=== PATIENT | male | born 1985 | race Caucasian/White ===

== ENCOUNTER 2019-06-18 11:16 | Inpatient (IN) ==
[2019-06-18 12:05] LABS: Appearance Urine Clear (Clear); Bacteria Urine Automated Negative (Negative); Bilirubin Urine Negative (Negative); Blood Urine Negative (Negative); Color Urine Yellow; Glucose Urine UA Negative (Negative); Ketones Urine Negative (Negative); Leukocyte Esterase Urine 1+ (Negative); Nitrite Urine Negative (Negative); Protein Urine Negative (Negative); RBC Urine Automated 0-4 /hpf (0-4); Specific Gravity Urine 1.018 (1.000-1.030); Urobilinogen Urine Negative (Negative); pH Urine 5.5 (4.5-7.5)
[2019-06-18 12:26] LABS: Amphetamines+Metham, Urine Neg (Neg); Barbiturates, Urine Neg (Neg); Benzodiazepine, Urine Neg (Neg); Cocaine, Urine Neg (Neg); MDMA (Ecstacy), Urine Pos (Neg); Methadone, Urine Neg (Neg); Opiate, Urine Neg (Neg); Phencyclidine, Urine Neg (Neg)
[2019-06-18 12:35] LABS: Basophils # (auto) 0.07 K/uL (0-0.2); Basophils % (auto) 1.1 %; Hematocrit (blood only) 47.8 % (42-52); Immature Granulocytes # (auto) 0.02 K/uL (0.00-0.02); Immature Granulocytes % (auto) 0.3 %; Lymphocytes # (auto) 2.33 K/uL (1.2-3.4); Lymphocytes % (auto) 35.5 %; Mean Corpuscular Hemoglobin 27.9 pg (25-34); Mean Corpuscular Hgb Conc 35.6 g/dL (32-36); Mean Corpuscular Volume 78.5 fL (80-100); Mean Platelet Volume 9.9 fL (7.4-10.4); Monocytes # (auto) 0.47 K/uL (0.11-0.59); Monocytes % (auto) 7.2 %; Neutrophils # (auto) 3.68 K/uL (1.4-6.5); Neutrophils % (auto) 55.9 %; Platelet Count 270 K/uL (130-400); RDW Standard Deviation 39.6 fL (36.4-46.3); Red Blood Count 6.09 M/uL (4.7-6.1); White Blood Count 6.57 K/uL (4.8-10.8)
[2019-06-18 13:06] LABS: Acetaminophen < 2 ug/ml (10-30); Salicylate < 1.7 mg/dl (2.8-20)
[2019-06-18 13:10] LABS: Albumin Level 4.2 gm/dl (3.4-5.0); BUN Creatinine Ratio 15.3 (10-20); Calcium 9.2 mg/dl (8.5-10.1); Creatinine Clr Calc Pharmacy 143.9 ml/min; Est GFR (Non-African American) 111.3; Potassium 4.4 mmol/L (3.5-5.1)
[2019-06-18 13:21] LABS: Albumin Globulin Ratio 1.3 (0.9-2); Bilirubin,Total 0.5 mg/dl (0.2-1); Globulin 3.3 gm/dl (2.5-4.0); Thyroid Stimulating Hormone 0.664 uIu/ml (0.300-4.500); Total Protein 7.5 gm/dl (6.4-8.2)
--- NOTE | 2019-06-18 14:07 | Emergency Department Note ---
Entered by Viry Garland acting as a scribe for History of Present Illness General Chief complaint: Mental Health Evaluation Stated complaint: MENTAL HEALTH EVAL-201 Source: patient History of Present Illness Onset (ago): week(s) (a few weeks ago) Location: head Pain Consistency: + other (worsening) Maximum Pain Intensity: 0 Quality: + other (mental health) Associated symptoms: + denies other symptoms (hallucinations, ever hurting himself in the past) and + other (SI with plan to overdose, feeling helpless, difficulty sleeping); no loss of appetite The patient is a 34 year old male who presents to the Emergency Room for a mental health evaluation. The patients father states that the patient has been living in [place] for 4 years with his girlfriend. He states that last fall their relationship ended after 6 years and he started to have some difficulties with his bipolar. He reports that he ended up going inpatient in August of last year for a little and having his medications changed. He reports that he has been doing well since then until the last few weeks. He states that at the end of March he moved back to [place] and has been living with him. He states that since then, he has just been upset over situation and has been feeling helpless. The patient states that he has been going to [facility] for counseling once every 2 weeks. He states that he has been having suicidal tho ughts for the past few weeks with the plan to overdose on his pills at home. He reports that he gets these thoughts daily and shared them with his counselor, but not his parents. He states that today after seeing his counselor they recommended he come here to come inpatient. The patient complains of intermittent difficulty sleeping. The patient denies hallucinations, ever hurting himself in the past, loss of appetite, use of drugs, and use of alcohol. Home Medications Home Medications Medication Instructions Recorded Confirmed Type aripiprazole [Abilify Maintena] 400 mg IM MONTHLY 06/18/19 06/18/19 History bupropion HCl [Wellbutrin XL] 300 mg PO QAM 06/18/19 06/18/19 History hydroxyzine HCl 40 mg PO HS 06/18/19 06/18/19 History Allergies Allergy/AdvReac Type Severity Reaction Status Date / Time No Known Allergies Allergy Mild Verified 06/18/19 11:40 Past Med/Surg History Medical History Hypertension (Chronic) Bipolar disorder (Chronic) Depression (Chronic) Mood disorder (Acute) Suicidal ideation (Acute 12/24/13) Family History Other Asthma Cancer Gallbladder disease Hypertension Social History Preferred Language: Nepali Communication Ability: Effective Dry Drug Worker Required: No Beliefs That Will Affect Care: Spiritual ([place]) marital status: Single Current Living Situation: Family current occupational status: employed Feels Safe at Home: Yes Smoking Status: Never smoker Hx Alcohol Use: No Hx Substance Use: No Review of Systems See HPI for pertinent positives & negatives. and A total of 10 systems reviewed and were otherwise negative Physical Exam Vital Signs Vital Signs - 24 hr 06/18/19 11:23 06/18/19 13:46 06/18/19 15:30 Temperature 36.4 C L Temperature Source Oral Sepsis Recent Fever Within 48 Hours No Sepsis New/Unexplained Change in Mental Status No Sepsis Action Taken by Nursing No Action Required Pulse Rate 72 82 Pulse Rate [Finger] 88 Pulse Rhythm [Finger] Regular Respiratory Rate 18 19 20 Respiratory Effort / Characteristics Non-Labored Non-Labored Spontaneous Respiratory Depth Normal Normal Respiratory Pattern Regular Regular Blood Pressure 171/97 H 136/90 Blood Pressure [Left Arm] 131/88 Blood Pressure Mean 121 Blood Pressure Mean [Left Arm] 102 Blood Pressure Position Lying Pulse Oximetry 98 95 97 Oxygen Delivery Method Room Air Room Air Room Air GENERAL: Awake, alert, well-appearing, in no distress HENT: Normocephalic, atraumatic. Oropharynx unremarkable. EYES: Normal conjunctiva. Sclera non-icteric. NECK: Supple. No nuchal rigidity. RESPIRATORY: Clear to auscultation. No wheezes. Normal respiratory effort. CARDIAC: Normal rate. Normal rhythm. Extremities warm and well perfused. GI: Soft, non-distended. No tenderness to palpation. No rebound or guarding. No masses. RECTAL: Deferred. MUSCULOSKELETAL: Atraumatic. Chest examination reveals no tenderness. There is no CVA tenderness to palpation. LOWER EXTREMITIES: Calves are equal size bilaterally and non-tender. No edema NEURO: Normal sensorium. No sensory or motor deficits noted. No facial droop. SKIN: Warm and dry. No rash or jaundice noted. PSYCH: Endorses SI with a plan to overdose on pills. Denies hallucinations or HI. Flattened affect. Course 1156: Past medical records reviewed. The patient was evaluated in room A8. A complete history and physical exam was performed. 1404: The psych human services case manager referred the patient to [address] [place] [address]. 1525: The patient was accepted to [address] [place] [address]. Medical Decision Making Differential Diagnosis Differential diagnoses considered include mood disorder, infection, hypoglycemia, electrolyte abnormalities, cardiac sources, intracerebral event, toxicologic, neurologic, as well as others. Medical Records Attestation: I reviewed the patient's medical records. Home Medications Current Medication List: was personally reviewed by me Laboratory Data Attestation: I reviewed the patient's lab results. Result diagrams: 06/18/19 12:19 06/18/19 12:19 Lab Results 06/18/19 06/18/19 06/18/19 Range/Units 11:35 11:35 12:19 WBC 6.57 (4.8-10.8) K/uL RBC 6.09 (4.7-6.1) M/uL Hgb 17.0 (14.0-18.0) g/dL Hct 47.8 (42-52) % MCV 78.5 L (80-100) fL MCH 27.9 (25-34) pg MCHC 35.6 (32-36) g/dL RDW Std Deviation 39.6 (36.4-46.3) fL RDW Coeff of [place] 14.0 (11.5-14.5) % Plt Count 270 (130-400) K/uL MPV 9.9 (7.4-10.4) fL Immature Gran % (Auto) 0.3 % Neut % (Auto) 55.9 % Lymph % (Auto) 35.5 % [place] % (Auto) 7.2 % Eos % (Auto) 0.0 % Baso % (Auto) 1.1 % Immature Gran # (Auto) 0.02 (0.00-0.02) K/uL Neut # (Auto) 3.68 (1.4-6.5) K/uL Lymph # (Auto) 2.33 (1.2-3.4) K/uL [place] # (Auto) 0.47 (0.11-0.59) K/uL Eos # (Auto) 0.00 (0-0.5) K/uL Baso # (Auto) 0.07 (0-0.2) K/uL Sodium (136-145) mmol/L Potassium (3.5-5.1) mmol/L Chloride (98-107) mmol/L Carbon Dioxide (21-32) mmol/L Anion Gap (3-11) BUN (7-18) mg/dl Creatinine (0.6-1.4) mg/dl Est Cr Clr Drug Dosing ml/min Est GFR ( Amer) Est GFR (Non-Af Amer) BUN/Creatinine Ratio (10-20) Glucose (70-99) mg/dl Calcium (8.5-10.1) mg/dl Total Bilirubin (0.2-1) mg/dl AST (15-37) U/L ALT (12-78) U/L Alkaline Phosphatase (45-117) U/L Total Protein (6.4-8.2) gm/dl Albumin (3.4-5.0) gm/dl Globulin (2.5-4.0) gm/dl Albumin/Globulin Ratio (0.9-2) TSH (0.300-4.500) uIu/ml Specimen Hemolysis Urine Color Yellow Urine Appearance Clear (Clear) Urine pH 5.5 (4.5-7.5) Ur Specific [place] 1.018 (1.000-1.030) Urine Protein Negative (Negative) Urine Glucose (UA) Negative (Negative) Urine Ketones Negative (Negative) Urine Blood Negative (Negative) Urine Nitrite Negative (Negative) Urine Bilirubin Negative (Negative) Urine Urobilinogen Negative (Negative) Ur Leukocyte Esterase 1+ H (Negative) Urine WBC (Auto) 5-10 H (0-5) /hpf Urine RBC (Auto) 0-4 (0-4) /hpf U Hyaline Cast (Auto) 1-5 (0-5) /lpf U Epithel Cells (Auto) 10-20 H (0-5) /lpf Urine Bacteria (Auto) Negative (Negative) Salicylates (2.8-20) mg/dl Urine Opiates Screen Neg (Neg) Ur Methadone, Qual Neg (Neg) Acetaminophen (10-30) ug/ml Urine Barbiturates Neg (Neg) Ur Phencyclidine (PCP) Neg (Neg) U Amphetamin/Meth Scrn Neg (Neg) MDMA (Ecstasy) Screen Pos H (Neg) U Benzodiazepines Scrn Neg (Neg) Ur Cocaine Metabolite Neg (Neg) U Marijuana (THC) Screen Neg (Neg) Ethyl Alcohol mg/dL (0-3) mg/dl 06/18/19 06/18/19 06/18/19 Range/Units 12:19 12: 12:19 WBC (4.8-10.8) K/uL RBC (4.7-6.1) M/uL Hgb (14.0-18.0) g/dL Hct (42-52) % MCV (80-100) fL MCH (25-34) pg MCHC (32-36) g/dL RDW Std Deviation (36.4-46.3) fL RDW Coeff of [place] (11.5-14.5) % Plt Count (130-400) K/uL MPV (7.4-10.4) fL Immature Gran % (Auto) % Neut % (Auto) % Lymph % (Auto) % [place] % (Auto) % Eos % (Auto) % Baso % (Auto) % Immature Gran # (Auto) (0.00-0.02) K/uL Neut # (Auto) (1.4-6.5) K/uL Lymph # (Auto) (1.2-3.4) K/uL [place] # (Auto) (0.11-0.59) K/uL Eos # (Auto) (0-0.5) K/uL Baso # (Auto) (0-0.2) K/uL Sodium 139 (136-145) mmol/L Potassium 4.4 (3.5-5.1) mmol/L Chloride 108 H (98-107) mmol/L Carbon Dioxide 23 (21-32) mmol/L Anion Gap 8.0 (3-11) BUN 14 (7-18) mg/dl Creatinine 0.88 (0.6-1.4) mg/dl Est Cr Clr Drug Dosing 143.9 ml/min Est GFR ( Amer) 129.0 Est GFR (Non-Af Amer) 111.3 BUN/Creatinine Ratio 15.3 (10-20) Glucose 93 (70-99) mg/dl Calcium 9.2 (8.5-10.1) mg/dl Total Bilirubin 0.5 (0.2-1) mg/dl AST 31 (15-37) U/L ALT 79 H (12-78) U/L Alkaline Phosphatase 84 (45-117) U/L Total Protein 7.5 (6.4-8.2) gm/dl Albumin 4.2 (3.4-5.0) gm/dl Globulin 3.3 (2.5-4.0) gm/dl Albumin/Globulin Ratio 1.3 (0.9-2) TSH 0.664 (0.300-4.500) uIu/ml Specimen Hemolysis Urine Color Urine Appearance (Clear) Urine pH (4.5-7.5) Ur Specific [place] (1.000-1.030) Urine Protein (Negative) Urine Glucose (UA) (Negative) Urine Ketones (Negative) Urine Blood (Negative) Urine Nitrite (Negative) Urine Bilirubin (Negative) Urine Urobilinogen (Negative) Ur Leukocyte Esterase (Negative) Urine WBC (Auto) (0-5) /hpf Urine RBC (Auto) (0-4) /hpf U Hyaline Cast (Auto) (0-5) /lpf U Epithel Cells (Auto) (0-5) /lpf Urine Bacteria (Auto) (Negative) Salicylates < 1.7 L (2.8-20) mg/dl Urine Opiates Screen (Neg) Ur Methadone, Qual (Neg) Acetaminophen < 2 L (10-30) ug/ml Urine Barbiturates (Neg) Ur Phencyclidine (PCP) (Neg) U Amphetamin/Meth Scrn (Neg) MDMA (Ecstasy) Screen (Neg) U Benzodiazepines Scrn (Neg) Ur Cocaine Metabolite (Neg) U Marijuana (THC) Screen (Neg) Ethyl Alcohol mg/dL < 3.0 (0-3) mg/dl Blood Pressure Blood Pressure Findings: Elevated blood pressure Blood Pressure Disposition: elevated BP felt to be situational MDM Narrative Patient is a 34-year-old gentleman with a past medical history of bipolar disorder prior inpatient psychiatric hospitalizations presenting today with repo rt of suicidal thoughts over the past month. Patient's father states presents with the patient talked about possibly taking pills to harm himself.. Patient denies a plan denies homicidal thoughts. Denies any hallucinations. Flattened affect. Referred by his son point care provider for evaluation here today. Prior inpatient treatment last last year in [place]. Medical clearance and screening exam was completed here. Such a human services case manager assisted with evaluation. No significant findings on laboratory studies here. Believe the patient would benefit given his suicidal ideation and thoughts of a plan with inpatient psychiatric treatment. Voluntary admission was pursued. Admitted to for further care. Impression & Plan Mood disorder, Suicidal thoughts Discharge Plan Visit Data *Final* Discharge Date/Time: 06/18/19 15:30 Chief Complaint: Mental Health Evaluation Stated Complaint: MENTAL HEALTH EVAL-201 ED Provider: Rob Quiroz Discharge Problem: Mood disorder, Suicidal thoughts Patient Disposition: Admitted As Inpatient Discharge Instructions Interventions: ED Discharge Assessment Last Done: 06/18/19 15:30 The bertaibe's documentation has been prepared under my direction and personally reviewed by me in its entirety. I confirm that the note above accurately refle cts all work, treatment, procedures, and medical decision making performed by me.
[2019-06-18] MEDS ORDERED: ACETAMINOPHEN 325 MG TAB PO PRN (15:10)
[2019-06-18] MEDS ORDERED: BISMUTH SUBSALICYLATE PER ML OMNICELL CHARGE PO PRN (15:10)
[2019-06-18] MEDS ORDERED: MAGNESIUM HYDROXIDE SUSP 30 ML UDC PO PRN (15:10)
[2019-06-18] MEDS ORDERED: ALUMINUM/MAGNESIUM SUSP 30 ML UDC PO PRN (15:10)
[2019-06-18] MEDS ORDERED: SODIUM CHLORIDE 0.65% NA SOLN 45 ML (OCEAN) PRN (15:10)
--- NOTE | 2019-06-18 15:35 | History & Physical ---
Date of Service June 18, 2019 Impression / Recommendations Impression 34-year-old male admitted voluntarily for inpatient psychiatric treatment on 06/18/19 due to reports of chronic depressive symptoms, difficulty attending to ADLs, and suicidality with plan to overdose on medications. Pt was sent to the ED after meeting with his therapist and psychiatric DRUM TENDER at [facility]. Admission had been considered for some time due to persistent difficulties not responding to outpatient treatment, and patient and father were agreeable to inpatient admission. Pt has a reported diagnosis of bipolar I disorder, though is unable at this time to recall any presentation consistent with janis/hypomania. Will obtain collateral information from his family and outpatient providers to discuss history. Pt was agreeable with resuming lithium at initial dosing of 300mg BID to target depressive symptoms in setting of bipolar diagnosis and chronic suicidality. Risks, benefits, and potential side effects were discussed with patient verbalizing understanding and reporting agreement with plan. Will continue the remainder of his home medication regimen at this time. Pt will be encouraged to participate in group and recreational programming. Will suggest he involve his family in a meeting. At this time, patient continues to endorse suicidality with thoughts to overdose on medications. He remains at acute risk of harm to himself if he is discharged prematurely without adequate mitigation of risk factors. Dr. Rosalind Crum was directly involved in review and discussion of the patient's case and participated in medical decision making regarding treatment recommendations. (1) Suicidal ideation: 06/18 - Admitted to a locked inpatient behavioral health unit, on q15 minute safety checks - Encourage medication initiation/adjustments as indicated - Encourage participation in group and recreational therapies - Gather collateral information from outpatient providers - Suggest family meeting to involve outpatient supports in safety planning - Arrange appropriate aftercare (2) Bipolar disorder: 06/18 - Initiate lithium 300mg BID. After review of risks, benefits, and potential side effects - patient verbalized understanding and is agreeable with initiating the medication - Continue home dosage of bupropion XL 300mg qAM and Abilify Maintena 400mg monthly (due for injection ~06/25) - Gather collateral information from family and outpatient providers regarding history of bipolar disorder, as patient is unable at this time to describe any symptoms consistent with janis/hypomania - Encourage participation with group and recreational programming - Encourage family meeting to discuss aftercare and discharge planning Active/Remission status: currently active Current bipolar episode type: depressed Current episode severity: severe Psychotic features: without psychotic features Qualified Code(s): F31.4 - Bipolar disorder, current episode depressed, severe, without psychotic features Inventory Assets Strengths: Willingness for treatment, family support, established outpatient providers Needs: medication adjustments to target depressive symptoms and SI, development of healthy coping strategies Risk Factors Assessment Male: Yes Psychiatric History Identifying Data AZAM SEN is a 34-year-old M who currently lives in [place] with his parents. Pt has a history of bipolar I disorder, and was admitted on 06/18/19 on a 201 voluntary commitment for suicidality with plan to overdose on medications. Information is obtained from ED documentation, outpatient psychiatric records, and the patient himself. The combination of which is considered to be reliable. Chief Complaint "Um, wel...I was living in [place] for the past 4-5 years. I moved back home because I broke up with my girlfriend." History of Present Illness Azam Sen is a 34-year-old male admitted voluntarily for inpatient psychiatric treatment due to reports of suicidality with verbalized plan to overdose on medication. Pt has a reported history of bipolar I disorder, but it is reported that patient's depressive symptoms have been chronic for several months. He is reported to have limited motivation, limited motivation to care for self, and is not thriving in the outpatient setting. He does have a therapist and psychiatric DRUM TENDER at [facility], with whom he has been discussing his suicidality and potential for inpatient treatment. After a visit at their office today, patient was willing for ED mental health evaluation. [facility] called ED with referral, and patient was seen in the ED accompanied by his father. Pt was cooperative with psychiatric evaluation. He reports he has been experiencing worsening mood and suicidality for the past month. Pt states that he moved back to [place] about 2 months ago. He states he had broken up with his girlfriend about 1 year ago, but continued to live in [place] after this. He admits that he had not been doing well, and his family encouraged him to return home. He states he has experienced worsening depressive symptoms over the past month. Pt reports suicidality is now occurring on a daily basis, with reported consideration to overdose on medications. Pt admits to depressive symptoms of low mood, isolative behavior, difficulty falling and staying asleep, decreased energy, and hopelessness. He states that his motivation has been decreased, but he continues to attend work as scheduled and complete ADLs. His family reportedly does not agree with this perception, as they had reported his lack of motivation to complete tasks has been rather significant at home. Pt states his mood over the past month is a 5/10, but would prefer his mood to be an 8/10. When asked about anxiety, patient only states, "sometimes, sometimes I worry about what people think of me." He denies excessive racing thoughts, or physical symptoms that occur with anxiety. When asked about his behavior during an elevated or manic state, the patient states "I don't think it's much different. I'm usually about the same." After review of typical manic behaviors, patient only identifies with - "yeah, I guess sometimes I need less sleep." Pt denies HI, SIB, A/V hallucinations, paranoia, OCD, PTSD, eating disorder, and other specific psychiatric symptoms. At this time, he is denying symptoms consistent with a prior manic episodes, but reliability of reports is unclear. Past Psychiatric History Current Psychiatric Diagnosis: Bipolar disorder, type 1 Outpatient Services: Psychiatric prescriber - ERIC Daniel [facility] Therapist - Christian Bo [facility] Previous Psych Admissions: [facility] - 07/2016 Facility in [place] - 1 week admission in 06/2018 for manic episode History of Previous Suicide Attempt: No Past Medication Trials: Per outpatient psychiatric records: 1. Abilify + Abilify Maintena 2. Seroquel - reported fatigue 3. Denham 4. Wellbutrin SR 5. Zyprexa 6. Depakote 7. Zoloft - increased irritability 8. Hydroxyzine 9. Metformin Past Head Trauma/Neuro History History of Concussion/Seizure: Yes (one prior concussion) Allergies Allergy/AdvReac Type Severity Reaction Status Date / Time No Known Allergies Allergy Mild Verified 06/18/19 11:40 Home Medications Home Medications Medication Instructions Recorded Confirmed Type aripiprazole [Abilify Maintena] 400 mg IM MONTHLY 06/18/19 06/18/19 History bupropion HCl [Wellbutrin XL] 300 mg PO QAM 06/18/19 06/18/19 History hydroxyzine HCl 40 mg PO HS 06/18/19 06/18/19 History Family History Family Mental Health History Comment: Pt reports his twin brother has schizophrenia. He denies family history of drug or alcohol abuse or addictions. Denies known family history of suicide attempts or completion. Alcohol History Hx of Alcohol Use Over the Past 12 Months: Yes Pt reports alcohol use about once a month. Admits to consuming 1-2 beers on nights her partakes. Denies regularly drinking to the point of intoxication. Smoking Use Have You Smoked or Used Tobacco Products in the Last 30 Days: No Smoking Status: Never smoker Substance History Pt denies prior experimentation with or regular use of illicit substances. Denies routine caffeine intake. Personal History Living Arrangements: Home (living in parent's home since he moved back from [place] in 03/2019) Childhood: Pt states he was born and raised in [place]. He has an older sister and older brother, also has a twin brother. Reports a "normal" childhood. Highest Grade Completed: High School Graduate Employment Status: [employer] Employed ([email or web address]) Marital Status: Single Number Of Children: None Beliefs That Will Affect Care: Spiritual (Protestant) Current Legal Problems: No Hx Legal Problems: Yes (reports a DUI at age 23y/o) Hx Traumatic Life Events: No Psychological Trauma History Comment: Denies Patient History Medical History Hypertension (Chronic) Bipolar disorder (Chronic) Depression (Chronic) Mood disorder (Acute) Suicidal ideation (Acute 12/24/13) Family History Other Asthma Cancer Gallbladder disease Hypertension Social History Preferred Language: Arabic Communication Ability: Effective 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 Physical Exam Psychiatric: Orientation: alert, oriented x 3 and cooperative (but hesitant) Apperance: appropriately dressed, appropriately groomed and appeared stated age Obese, male seated in no acute distress. Pt is appropriately dressed for setting, still in paper scrubs. He is adequately groomed with clean hair and short turcios. Pt is wearing corrective lenses. Level of hygiene and hydration appear adequate. Eye Contact: good eye contact Motor Behavior: steady gait and station and no abnormal motor movements Speech: normal rate/rhythm/volume of speech (non- spontaneous, brief responses to questions) Affect: + flat affect; no anxious affect Mood: + depressed mood ("I don't know, I'd like to feel happier") Thought Process: goal directed thought process and + concrete thought process Thought Content: reality based without delusions, + hopelessness and + loneline ss Suicidal Thoughts: denies suicidal intent; + reports suicidal thoughts (daily SI for several months) and + reports suicidal plan (verbalizes consideration to overdose on medications) Homicidal Thoughts: denies homicidal thoughts Hallucinations: no auditory hallucinations and no visual hallucinations Cognition: remote memory grossly intact, attention grossly intact and language grossly intact Insight: + fair insight Judgement: + fair judgement Vital Signs (Past 24 Hours): Last Vital Signs Temp 36.4 C L 06/18/19 11:23 Pulse 88 06/18/19 13:46 Resp 19 06/18/19 13:46 BP 131/88 06/18/19 13:46 Pulse Ox 95 06/18/19 13:46 Exam Statement: A physical exam was performed in the ER prior to admission to the unit by Dr. Rob Quiroz. I accept that physical as correct/medical clearance for the inpatient physical exam. Results & Data Laboratory Results Laboratory Results - last 24 hr 06/18/19 06/18/19 06/18/19 11:35 11:35 11:35 WBC RBC Hgb Hct MCV MCH MCHC RDW Std Deviation RDW Coeff of [place] Plt Count MPV Immature Gran % (Auto) Neut % (Auto) Lymph % (Auto) [place] % (Auto) Eos % (Auto) Baso % (Auto) Immature Gran # (Auto) Neut # (Auto) Lymph # (Auto) [place] # (Auto) Eos # (Auto) Baso # (Auto) Sodium Potassium Chloride Carbon Dioxide Anion Gap BUN Creatinine Est Cr Clr Drug Dosing Est GFR ( Amer) Est GFR (Non-Af Amer) BUN/Creatinine Ratio Glucose Calcium Total Bilirubin AST ALT Alkaline Phosphatase Total Protein Albumin Globulin Albumin/Globulin Ratio TSH Specimen Hemolysis Urine Color Yellow Urine Appearance Clear Urine pH 5.5 Ur Specific Ramer 1.018 Urine Protein Negative Urine Glucose (UA) Negative Urine Ketones Negative Urine Blood Negative Urine Nitrite Negative Urine Bilirubin Negative Urine Urobilinogen Negative Ur Leukocyte Esterase 1+ H Urine WBC (Auto) 5-10 H Urine RBC (Auto) 0-4 U Hyaline Cast (Auto) 1-5 U Epithel Cells (Auto) 10-20 H Urine Bacteria (Auto) Negative Salicylates Urine Opiates Screen Neg Ur Methadone, Qual Neg Acetaminophen Urine Barbiturates Neg Ur Phencyclidine (PCP) Neg U Amphetamin/Meth Scrn Neg MDMA (Ecstasy) Screen Pos H U MDMA (Ecstasy), Quant Pending U Benzodiazepines Scrn Neg Ur Cocaine Metabolite Neg U Marijuana (THC) Screen Neg Ethyl Alcohol mg/dL 06/18/19 06/18/19 06/18/19 12:19 12:19 12:19 WBC 6.57 RBC 6.09 Hgb 17.0 Hct 47.8 MCV 78.5 L MCH 27.9 MCHC 35.6 RDW Std Deviation 39.6 RDW Coeff of [place] 14.0 Plt Count 270 MPV 9.9 Immature Gran % (Auto) 0.3 Neut % (Auto) 55.9 Lymph % (Auto) 35.5 [place] % (Auto) 7.2 Eos % (Auto) 0.0 Baso % (Auto) 1.1 Immature Gran # (Auto) 0.02 Neut # (Auto) 3.68 Lymph # (Auto) 2.33 [place] # (Auto) 0.47 Eos # (Auto) 0.00 Baso # (Auto) 0.07 Sodium 139 Potassium 4.4 Chloride 108 H Carbon Dioxide 23 Anion Gap 8.0 BUN 14 Creatinine 0.88 Est Cr Clr Drug Dosing 143.9 Est GFR ( Amer) 129.0 Est GFR (Non-Af Amer) 111.3 BUN/Creatinine Ratio 15.3 Glucose 93 Calcium 9.2 Total Bilirubin 0.5 AST 31 ALT 79 H Alkaline Phosphatase 84 Total Protein 7.5 Albumin 4.2 Globulin 3.3 Albumin/Globulin Ratio 1.3 TSH 0.664 Specimen Hemolysis Urine Color Urine Appearance Urine pH Ur Specific Ramer Urine Protein Urine Glucose (UA) Urine Ketones Urine Blood Urine Nitrite Urine Bilirubin Urine Urobilinogen Ur Leukocyte Esterase Urine WBC (Auto) Urine RBC (Auto) U Hyaline Cast (Auto) U Epithel Cells (Auto) Urine Bacteria (Auto) Salicylates < 1.7 L Urine Opiates Screen Ur Methadone, Qual Acetaminophen < 2 L Urine Barbiturates Ur Phencyclidine (PCP) U Amphetamin/Meth Scrn MDMA (Ecstasy) Screen U MDMA (Ecstasy), Quant U Benzodiazepines Scrn Ur Cocaine Metabolite U Marijuana (THC) Screen Ethyl Alcohol mg/dL 06/18/19 12:19 WBC RBC Hgb Hct MCV MCH MCHC RDW Std Deviation RDW Coeff of [place] Plt Count MPV Immature Gran % (Auto) Neut % (Auto) Lymph % (Auto) [place] % (Auto) Eos % (Auto) Baso % (Auto) Immature Gran # (Auto) Neut # (Auto) Lymph # (Auto) [place] # (Auto) Eos # (Auto) Baso # (Auto) Sodium Potassium Chloride Carbon Dioxide Anion Gap BUN Creatinine Est Cr Clr Drug Dosing Est GFR ( Amer) Est GFR (Non-Af Amer) BUN/Creatinine Ratio Glucose Calcium Total Bilirubin AST ALT Alkaline Phosphatase Total Protein Albumin Globulin Albumin/Globulin Ratio TSH Specimen Hemolysis Urine Color Urine Appearance Urine pH Ur Specific [place] Urine Protein Urine Glucose (UA) Urine Ketones Urine Blood Urine Nitrite Urine Bilirubin Urine Urobilinogen Ur Leukocyte Esterase Urine WBC (Auto) Urine RBC (Auto) U Hyaline Cast (Auto) U Epithel Cells (Auto) Urine Bacteria (Auto) Salicylates Urine Opiates Screen Ur Methadone, Qual Acetaminophen Urine Barbiturates Ur Phencyclidine (PCP) U Amphetamin/Meth Scrn MDMA (Ecstasy) Screen U MDMA (Ecstasy), Quant U Benzodiazepines Scrn Ur Cocaine Metabolite U Marijuana (THC) Screen Ethyl Alcohol mg/dL < 3.0 CPT Code CPT Code Initial Hospital Care: [id number]
[2019-06-18] MEDS ORDERED: INFLUENZA ADMINISTRATION CHARGE ONE (18:45)
[2019-06-18] MEDS ORDERED: INFLUENZA VIRUS QUAD VACCINE 0.5 ML SYR IM ONE (18:45)
[2019-06-18] MEDS: hydrOXYzine HCl 10 MG TAB PO SCH (21:20)
[2019-06-18] MEDS: LITHIUM CARBONATE 300 MG TAB PO SCH (21:20)
[2019-06-19] MEDS: BuPROPion XL 300 MG TABCR PO SCH (08:18)
[2019-06-19] MEDS: LITHIUM CARBONATE 300 MG TAB PO SCH ×2 (08:18→21:21)
--- NOTE | 2019-06-19 09:21 | Psychiatric Progress Note ---
Date of Service June 19, 2019 Impression / Recommendations Impression 34-year-old male with bipolar disorder who was admitted voluntarily for inpatient psychiatric treatment on 06/18/19 due to reports of chronic depressive symptoms, difficulty attending to ADLs, and suicidality with plan to overdose on medications. Pt was sent to the ED after meeting with his therapist and psychiatric [employer]FOR[employer]INEER at [facility]. He has had limited response to treatment, and was agreeable with resuming lithium at initial dosing of 300mg BID to target depressive symptoms in setting of bipolar diagnosis and chronic suicidality. He continues to endorse suicidality with thoughts to overdose on medications and remains at acute risk of harm to himself if he is discharged prematurely without adequate mitigation of risk factors. (1) Suicidal ideation: 06/18 - Admitted to a locked inpatient behavioral health unit, on q15 minute safety checks - Encourage medication initiation/adjustments as indicated - Encourage participation in group and recreational therapies - Gather collateral information from outpatient providers - Suggest family meeting to involve outpatient supports in safety planning - Arrange appropriate aftercare (2) Bipolar disorder: 06/18 - Initiate lithium 300mg BID. After review of risks, benefits, and potential side effects - patient verbalized understanding and is agreeable with initiating the medication - Continue home dosage of bupropion XL 300mg qAM and Abilify Maintena 400mg monthly (due for injection ~06/25) - Gather collateral information from family and outpatient providers regarding history of bipolar disorder, as patient is unable at this time to describe any symptoms consistent with janis/hypomania - Encourage participation with group and recreational programming - Encourage family meeting to discuss aftercare and discharge planning 06/19 -Schedule family meeting with parents. -Encourage patient to attend to participate in unit programming and work on coping skills. Inventory Assets Strengths: Willingness for treatment, family support, established outpatient providers Needs: medication adjustments to target depressive symptoms and SI, development of healthy coping strategies Risk Factors Assessment Male: Yes Interval History Identifying Information JOSE MANUEL SEN is a 34-year-old M who currently lives in [place] with his parents. Pt has a history of bipolar I disorder, and was admitted on 06/18/19 on a 201 voluntary commitment for suicidality with plan to overdose on medications. Chief Complaint "Okay". Review of Systems Sleep Information Total Hours of Sleep: 6.25 Meal Information Percent Meal Consumed - Dinner: 100 Subjective Subjective Patient was seen & assessed and interval progress reviewed with nursing and social work. Patient was seen with Ld Trinh MS2, with his permission. He reports no change in mood since admission, ongoing, daily suicidal thoughts "just because I am so sad, do not want to be sad anymore." He endorses hopelessness, negative thoughts, and ruminations on "my past." Reports "I 'd be better , but I know that's not right." He has thoughts about overdosing. His family and friends are protective, and his father visited. He lives with parents locally, and discussed recommendations for a family meeting. He is not sure what he would like to communicate to them or how they could help him in his recovery. Physical Exam Psychiatric Orientation: alert and cooperative Apperance: appropriately dressed; + did not appear stated age (Older) Eye Contact: good eye contact Motor Behavior: steady gait and station and no abnormal motor movements Minimal Affect: + flat affect Mood: + depressed mood Thought Process: + concrete thought process Thought Content: + hopelessness and + guilt Suicidal Thoughts: + reports suicidal thoughts Homicidal Thoughts: denies homicidal thoughts Hallucinations: no auditory hallucinations Insight: + limited insight Judgement: + limited judgement Vital Signs (Past 24 Hours) Last Vital Signs Temp 36.7 C 06/19/19 06:00 Pulse 94 H 06/19/19 06:56 Resp 18 06/19/19 06:00 BP 110/74 06/19/19 06:56 Pulse Ox 95 06/18/19 16:44 Results & Data Laboratory Results Laboratory Results - last 24 hr 06/18/19 06/18/19 06/18/19 11:35 11:35 11:35 WBC RBC Hgb Hct MCV MCH MCHC RDW Std Deviation RDW Coeff of [place] Plt Count MPV Immature Gran % (Auto) Neut % (Auto) Lymph % (Auto) [place] % (Auto) Eos % (Auto) Baso % (Auto) Immature Gran # (Auto) Neut # (Auto) Lymph # (Auto) [place] # (Auto) Eos # (Auto) Baso # (Auto) Sodium Potassium Chloride Carbon Dioxide Anion Gap BUN Creatinine Est Cr Clr Drug Dosing Est GFR ( Amer) Est GFR (Non-Af Amer) BUN/Creatinine Ratio Glucose Calcium Total Bilirubin AST ALT Alkaline Phosphatase Total Protein Albumin Globulin Albumin/Globulin Ratio TSH Specimen Hemolysis Urine Color Yellow Urine Appearance Clear Urine pH 5.5 Ur Specific [place] 1.018 Urine Protein Negative Urine Glucose (UA) Negative Urine Ketones Negative Urine Blood Negative Urine Nitrite Negative Urine Bilirubin Negative Urine Urobilinogen Negative Ur Leukocyte Esterase 1+ H Urine WBC (Auto) 5-10 H Urine RBC (Auto) 0-4 U Hyaline Cast (Auto) 1-5 U Epithel Cells (Auto) 10-20 H Urine Bacteria (Auto) Negative Salicylates Urine Opiates Screen Neg Ur Methadone, Qual Neg Acetaminophen Urine Barbiturates Neg Ur Phencyclidine (PCP) Neg U Amphetamin/Meth Scrn Neg MDMA (Ecstasy) Screen Pos H U MDMA (Ecstasy), Quant Pending U Benzodiazepines Scrn Neg Ur Cocaine Metabolite Neg U Marijuana (THC) Screen Neg Ethyl Alcohol mg/dL 06/18/19 06/18/19 06/18/19 12:19 12:19 12:19 WBC 6.57 RBC 6.09 Hgb 17.0 Hct 47.8 MCV 78.5 L MCH 27.9 MCHC 35.6 RDW Std Deviation 39.6 RDW Coeff of [place] 14.0 Plt Count 270 MPV 9.9 Immature Gran % (Auto) 0.3 Neut % (Auto) 55.9 Lymph % (Auto) 35.5 [place] % (Auto) 7.2 Eos % (Auto) 0.0 Baso % (Auto) 1.1 Immature Gran # (Auto) 0.02 Neut # (Auto) 3.68 Lymph # (Auto) 2.33 [place] # (Auto) 0.47 Eos # (Auto) 0.00 Baso # (Auto) 0.07 Sodium 139 Potassium 4.4 Chloride 108 H Carbon Dioxide 23 Anion Gap 8.0 BUN 14 Creatinine 0.88 Est Cr Clr Drug Dosing 143.9 Est GFR ( Amer) 129.0 Est GFR (Non-Af Amer) 111.3 BUN/Creatinine Ratio 15.3 Glucose 93 Calcium 9.2 Total Bilirubin 0.5 AST 31 ALT 79 H Alkaline Phosphatase 84 Total Protein 7.5 Albumin 4.2 Globulin 3.3 Albumin/Globulin Ratio 1.3 TSH 0.664 Specimen Hemolysis Urine Color Urine Appearance Urine pH Ur Specific [place] Urine Protein Urine Glucose (UA) Urine Ketones Urine Blood Urine Nitrite Urine Bilirubin Urine Urobilinogen Ur Leukocyte Esterase Urine WBC (Auto) Urine RBC (Auto) U Hyaline Cast (Auto) U Epithel Cells (Auto) Urine Bacteria (Auto) Salicylates < 1.7 L Urine Opiates Screen Ur Methadone, Qual Acetaminophen < 2 L Urine Barbiturates Ur Phencyclidine (PCP) U Amphetamin/Meth Scrn MDMA (Ecstasy) Screen U MDMA (Ecstasy), Quant U Benzodiazepines Scrn Ur Cocaine Metabolite U Marijuana (THC) Screen Ethyl Alcohol mg/dL 06/18/19 12:19 WBC RBC Hgb Hct MCV MCH MCHC RDW Std Deviation RDW Coeff of [place] Plt Count MPV Immature Gran % (Auto) Neut % (Auto) Lymph % (Auto) [place] % (Auto) Eos % (Auto) Baso % (Auto) Immature Gran # (Auto) Neut # (Auto) Lymph # (Auto) [place] # (Auto) Eos # (Auto) Baso # (Auto) Sodium Potassium Chloride Carbon Dioxide Anion Gap BUN Creatinine Est Cr Clr Drug Dosing Est GFR ( Amer) Est GFR (Non-Af Amer) BUN/Creatinine Ratio Glucose Calcium Total Bilirubin AST ALT Alkaline Phosphatase Total Protein Albumin Globulin Albumin/Globulin Ratio TSH Specimen Hemolysis Urine Color Urine Appearance Urine pH Ur Specific [place] Urine Protein Urine Glucose (UA) Urine Ketones Urine Blood Urine Nitrite Urine Bilirubin Urine Urobilinogen Ur Leukocyte Esterase Urine WBC (Auto) Urine RBC (Auto) U Hyaline Cast (Auto) U Epithel Cells (Auto) Urine Bacteria (Auto) Salicylates Urine Opiates Screen Ur Methadone, Qual Acetaminophen Urine Barbiturates Ur Phencyclidine (PCP) U Amphetamin/Meth Scrn MDMA (Ecstasy) Screen U MDMA (Ecstasy), Quant U Benzodiazepines Scrn Ur Cocaine Metabolite U Marijuana (THC) Screen Ethyl Alcohol mg/dL < 3.0 Current Inpatient Medications Current Inpatient Medications: Current Inpatient Medications Acetaminophen (Tylenol) 650 mg PO Q4H PRN PRN Reason: Headache or Minor Fever Stop: 07/18/19 15:09 Al Hydrox/Mg Hydrox/Simethicone (Maalox) 30 ml PO Q4H PRN PRN Reason: GI Upset Stop: 07/18/19 15:09 Aripiprazole (Abilify Maintena Pre-Filled Syringe) 400 mg IM TODAY@0900 MATTHEW Stop: 06/25/19 18:00 Bismuth Subsalicylate (Kaopectate) 15 ml PO PRN PRN PRN Reason: Loose Stool Stop: 07/18/19 15:09 Bupropion HCl (Wellbutrin-Xl) 300 mg PO QAM MATTHEW Stop: 07/19/19 08:59 Last Admin: 06/19/19 08:18 Dose: 300 mg Documented by: Hydroxyzine HCl (Vistaril) 25 mg PO Q4H PRN PRN Reason: Anxiety Stop: 07/18/19 15:09 Hydroxyzine HCl (Vistaril) 40 mg PO HS MATTHEW Stop: 07/18/19 21:59 Last Admin: 06/18/19 21:20 Dose: 40 mg Documented by: [place] Carbonate ([place] Carbonate) 300 mg PO BID MATTHEW Stop: 07/18/19 20:59 Last Admin: 06/19/19 08:18 Dose: 300 mg Documented by: Magnesium Hydroxide (Milk Of Magnesia) 30 ml PO DAILY PRN PRN Reason: Constipation Stop: 07/18/19 15:09 Sodium Chloride ([place] Nasal) 1 - 2 sprays NA PRN PRN PRN Reason: Nasal Dryness/Congestion Stop: 07/18/19 15:09 Mental Health & Subst Abuse Tx Therapist Name of Therapist: Christian Bo CPT Code CPT Code 56407 (1) Bipolar disorder Active/Remission status: currently active Current bipolar episode type: depressed Current episode severity: severe Psychotic features: without psychotic features Qualified Code(s): F31.4 - Bipolar disorder, current episode depressed, severe, without psychotic features
[2019-06-19] MEDS: hydrOXYzine HCl 10 MG TAB PO SCH (21:21)
[2019-06-20] MEDS: LITHIUM CARBONATE 300 MG TAB PO SCH (08:21)
[2019-06-20] MEDS: BuPROPion XL 300 MG TABCR PO SCH (08:21)
--- NOTE | 2019-06-20 14:47 | Discharge Summary ---
Date of Service June 20, 2019 History of Present Illness Azam Langford is a 34-year-old male admitted voluntarily for inpatient psychiatric treatment due to reports of suicidality with verbalized plan to overdose on medication. Pt has a reported history of bipolar I disorder, but it is reported that patient's depressive symptoms have been chronic for several months. He is reported to have limited motivation, limited motivation to care for self, and is not thriving in the outpatient setting. He does have a therapist and psychiatric AD SETTER at [facility], with whom he has been discussing his suicidality and potential for inpatient treatment. After a visit at their office today, patient was willing for ED mental health evaluation. [facility] called ED with referral, and patient was seen in the ED accompanied by his father. Pt was cooperative with psychiatric evaluation. He reports he has been experiencing worsening mood and suicidality for the past month. Pt states that he moved back to [place] about 2 months ago. He states he had broken up with his girlfriend about 1 year ago, but continued to live in [place] after this. He admits that he had not been doing well, and his family encouraged him to return home. He states he has experienced worsening depressive symptoms over the past month. Pt reports suicidality is now occurring on a daily basis, with reported consideration to overdose on medications. Pt admits to depressive symptoms of low mood, isolative behavior, difficulty falling and staying asleep, decreased energy, and hopelessness. He states that his motivation has been decreased, but he continues to attend work as scheduled and complete ADLs. His family reportedly does not agree with this perception, as they had reported his lack of motivation to complete tasks has been rather significant at home. Pt states his mood over the past month is a 5/10, but would prefer his mood to be an 8/10. When asked about anxiety, patient only states, "sometimes, sometimes I worry about what people think of me." He denies excessive racing thoughts, or physical symptoms that occur with anxiety. When asked about his behavior during an elevated or manic state, the patient states "I don't think it's much different. I'm usually about the same." After review of typical manic behaviors, patient only identifies with - "yeah, I guess sometimes I need less sleep." Pt denies HI, SIB, A/V hallucinations, paranoia, OCD, PTSD, eating disorder, and other specific psychiatric symptoms. At this time, he is denying symptoms consistent with a prior manic episodes, but reliability of reports is unclear. Physical Exam Psychiatric Orientation: alert and oriented x 3 Apperance: appropriately dressed and appropriately groomed Eye Contact: + fair eye contact Motor Behavior: no abnormal motor movements Speech: normal rate/rhythm/volume of speech Affect: + constricted affect "Better. Basically, okay." Thought Process: goal directed thought process, linear/logical thought process and clear/coherent thought process Thought Content: reality based without delusions Suicidal Thoughts: denies suicidal thoughts The patient reports that he has a history of recurrent suicidal thoughts, but he reports that he does not have any associated suicidal intent. Homicidal Thoughts: denies homicidal thoughts Hallucinations: no auditory hallucinations Cognition: recent memory grossly intact, remote memory grossly intact, attention grossly intact and language grossly intact Estimated Intelligence: average estimated intelligence Insight: good insight Judgement: good judgement Vital Signs (Past 24 Hours) Last Vital Signs Temp 36.3 C L 06/20/19 13:38 Pulse 94 H 06/20/19 13:38 Resp 18 06/20/19 13:38 BP 134/94 06/20/19 13:38 Pulse Ox 95 06/20/19 13:38 Principal Diagnosis Bipolar Disorder Psychiatric Data During the course of hospitalization the patient was offered various modalities of psychiatric treatment and education. Specifically, he was offered individual, group, and activity therapies. Family involvement was also encouraged. In addition, the patient was offered psychiatric chemotherapy. He has been taking Abilify Maintena 400 mg every 4 weeks, and his next dose of this medication will be due on 06/25/2019 at the time of his next outpatient appointment. We also continued bupropion XL 300 mg daily. [place] carbonate, medication that the patient reportedly had used in the past, was restarted at a dose of 300 mg twice daily. His lithium level on 06/20/2019 was 0.3 (not a trough level) and the dose of lithium was then increased to lithium carbonate slow release 450 mg twice a day. The patient was advised accordingly. We are recommending that he repeat his lithium level next 06/24/2019 (trough level) of the results will be ready for his outpatient appointment with his prescribing provider on 06/25/2019. Instructions were provided. The patient clarified that he has been expressing suicidal thoughts as a way of communicating a certain amount of distress, but he notes that he does not have any specific suicidal plan, nor does he have suicidal intent. On the day of discharge, he reports that he has been having no thoughts of suicide since shortly after admission and he notes that the hospitalization has given him an opportunity to examine some of his concerns and, as he put it, put them in perspective." He has developed a safety plan, and is future oriented. He says that his long-term goal will be to find his own apartment, preferably in [facility] near his sister and brother or, possibly, back in [place] where he had previously been living. He notes that these goals may not be immediately practicable because he will need "financing" upfront in order to afford an apartment and get established. He is planning to accompany his par ents to [facility] next week in order to visit his siblings. He said that he thought that he might inquire about employment in [facility], if for no other reason than to "test" the job market and learn more about his income potential. The patient also reports that his depressive episodes typically last "about a month," and he feels that the current episode of depression has essentially run its course and is nearly resolved. He agrees that he can safely return to the community at this point in order to continue his treatment on an outpatient basis and is in full agreement with the discharge plan. Day of Discharge Assessment On the day of discharge the patient was found to be appropriately dressed and groomed. He is pleasant and fully cooperative with the discharge assessment. Patient's speech is spontaneous, and while not voluminous, is delivered at a normal rate and volume. His mood is described as "definitely better. May be still a little depressed, but not bad." His affect is somewhat constricted, but he smiles appropriately on several instances during the interview. The patient's thought processes demonstrate tight associations. There is no evidence of any delusional material and the patient's thought content. He reports, as noted above, that he is not experiencing suicidal thoughts. He also notes that even prior to admission he had not had any actual suicidal plan or intent. (He notes that he mentioned "overdose", but adds that this was "theoretical" and he states further that he had no plan to acquire or secure a supply of medications with which to overdose.) The patient's judgment and insight are good. His intelligence is at least average. The patient also reports that he has no thoughts of causing physical harm to the person or property of others. Transition of Care Transition Of Care Record: was reviewed with the patient Advance Directives Advance Directives Information Provided: Yes Advance Directives: No Mental Health Advance Directive: No Advance Directives on File: No Living Will: No Power of Counsellors: No Advance Directives Reason:: Declines as Mental Health Visit. Risk Factors Assessment Male: Yes : Yes Do You Have Access To A Gun?: No Health Problems: No Mental Health Diagnoses: Yes Substance Use Disorders: No Previous Attempt: No Family History of Suicide: No Previous Psychiatric Hospitalization: Yes Hopelessness: No Smoker: No Protective Factors Assessment : No Responsible for Young Children: No Employed: Yes Stable Relationships: Yes Supportive Family: Yes Good Rapport with Provider: Yes Absence of Any Risk Factors Above: No Tobacco Cessation at Discharge Tobacco Cessation Medication Prescribed at Discharge: Not Applicable/Non-Smoker Total Time Total Time Spent: Greater Than 30 Minutes Total Time Includes: Examination of the patient, Discharge Planning, Medication Reconciliation and Communication with other providers Discharge Data Lab Results 06/18/19 06/18/19 06/18/19 11:35 11:35 12:19 WBC 6.57 RBC 6.09 Hgb 17.0 Hct 47.8 MCV 78.5 L MCH 27.9 MCHC 35.6 RDW Std Deviation 39.6 RDW Coeff of [place] 14.0 Plt Count 270 MPV 9.9 Immature Gran % (Auto) 0.3 Neut % (Auto) 55.9 Lymph % (Auto) 35.5 [place] % (Auto) 7.2 Eos % (Auto) 0.0 Baso % (Auto) 1.1 Immature Gran # (Auto) 0.02 Neut # (Auto) 3.68 Lymph # (Auto) 2.33 [place] # (Auto) 0.47 Eos # (Auto) 0.00 Baso # (Auto) 0.07 Sodium Potassium Chloride Carbon Dioxide Anion Gap BUN Creatinine Est Cr Clr Drug Dosing Est GFR ( Amer) Est GFR (Non-Af Amer) BUN/Creatinine Ratio Glucose Calcium Total Bilirubin AST ALT Alkaline Phosphatase Total Protein Albumin Globulin Albumin/Globulin Ratio TSH Specimen Hemolysis Urine Color Yellow Urine Appearance Clear Urine pH 5.5 Ur Specific [place] 1.018 Urine Protein Negative Urine Glucose (UA) Negative Urine Ketones Negative Urine Blood Negative Urine Nitrite Negative Urine Bilirubin Negative Urine Urobilinogen Negative Ur Leukocyte Esterase 1+ H Urine WBC (Auto) 5-10 H Urine RBC (Auto) 0-4 U Hyaline Cast (Auto) 1-5 U Epithel Cells (Auto) 10-20 H Urine Bacteria (Auto) Negative Salicylates Urine Opiates Screen Neg Ur Methadone, Qual Neg Acetaminophen Urine Barbiturates Neg Ur Phencyclidine (PCP) Neg U Amphetamin/Meth Scrn Neg MDMA (Ecstasy) Screen Pos H U Benzodiazepines Scrn Neg [place] Ur Cocaine Metabolite Neg U Marijuana (THC) Screen Neg Ethyl Alcohol mg/dL 06/18/19 06/18/19 06/18/19 12:19 12:19 12:19 WBC RBC Hgb Hct MCV MCH MCHC RDW Std Deviation RDW Coeff of [place] Plt Count MPV Immature Gran % (Auto) Neut % (Auto) Lymph % (Auto) [place] % (Auto) Eos % (Auto) Baso % (Auto) Immature Gran # (Auto) Neut # (Auto) Lymph # (Auto) [place] # (Auto) Eos # (Auto) Baso # (Auto) Sodium 139 Potassium 4.4 Chloride 108 H Carbon Dioxide 23 Anion Gap 8.0 BUN 14 Creatinine 0.88 Est Cr Clr Drug Dosing 143.9 Est GFR ( Amer) 129.0 Est GFR (Non-Af Amer) 111.3 BUN/Creatinine Ratio 15.3 Glucose 93 Calcium 9.2 Total Bilirubin 0.5 AST 31 ALT 79 H Alkaline Phosphatase 84 Total Protein 7.5 Albumin 4.2 Globulin 3.3 Albumin/Globulin Ratio 1.3 TSH 0.664 Specimen Hemolysis Urine Color Urine Appearance Urine pH Ur Specific [place] Urine Protein Urine Glucose (UA) Urine Ketones Urine Blood Urine Nitrite Urine Bilirubin Urine Urobilinogen Ur Leukocyte Esterase Urine WBC (Auto) Urine RBC (Auto) U Hyaline Cast (Auto) U Epithel Cells (Auto) Urine Bacteria (Auto) Salicylates < 1.7 L Urine Opiates Screen Ur Methadone, Qual Acetaminophen < 2 L Urine Barbiturates Ur Phencyclidine (PCP) U Amphetamin/Meth Scrn MDMA (Ecstasy) Screen U Benzodiazepines Scrn [place] Ur Cocaine Metabolite U Marijuana (THC) Screen Ethyl Alcohol mg/dL < 3.0 06/20/19 12:57 WBC RBC Hgb Hct MCV MCH MCHC RDW Std Deviation RDW Coeff of [place] Plt Count MPV Immature Gran % (Auto) Neut % (Auto) Lymph % (Auto) [place] % (Auto) Eos % (Auto) Baso % (Auto) Immature Gran # (Auto) Neut # (Auto) Lymph # (Auto) [place] # (Auto) Eos # (Auto) Baso # (Auto) Sodium Potassium Chloride Carbon Dioxide Anion Gap BUN Creatinine Est Cr Clr Drug Dosing Est GFR ( Amer) Est GFR (Non-Af Amer) BUN/Creatinine Ratio Glucose Calcium Total Bilirubin AST ALT Alkaline Phosphatase Total Protein Albumin Globulin Albumin/Globulin Ratio TSH Specimen Hemolysis Urine Color Urine Appearance Urine pH Ur Specific [place] Urine Protein Urine Glucose (UA) Urine Ketones Urine Blood Urine Nitrite Urine Bilirubin Urine Urobilinogen Ur Leukocyte Esterase Urine WBC (Auto) Urine RBC (Auto) U Hyaline Cast (Auto) U Epithel Cells (Auto) Urine Bacteria (Auto) Salicylates Urine Opiates Screen Ur Methadone, Qual Acetaminophen Urine Barbiturates Ur Phencyclidine (PCP) U Amphetamin/Meth Scrn MDMA (Ecstasy) Screen U Benzodiazepines Scrn [place] 0.3 L Ur Cocaine Metabolite U Marijuana (THC) Screen Ethyl Alcohol mg/dL Hospital Course (1) Suicidal ideation: 06/18 - Admitted to a locked inpatient behavioral health unit, on q15 minute safety checks - Encourage medication initiation/adjustments as indicated - Encourage participation in group and recreational therapies - Gather collateral information from outpatient providers - Suggest family meeting to involve outpatient supports in safety planning - Arrange appropriate aftercare 06/20 -The patient reports that he is not experiencing any thoughts of suicide. He also clarifies that although he had been having fleeting thoughts of suicide prior to admission these thoughts were not associated with any specific or detailed plan, nor were they associated with any suicidal intent. (2) Bipolar disorder: 06/18 - Initiate lithium 300mg BID. After review of risks, benefits, and potential side effects - patient verbalized understanding and is agreeable with initiating the medication - Continue home dosage of bupropion XL 300mg qAM and Abilify Maintena 400mg monthly (due for injection ~06/25) - Gather collateral information from family and outpatient providers regarding history of bipolar disorder, as patient is unable at this time to describe any symptoms consistent with janis/hypomania - Encourage participation with group and recreational programming - Encourage family meeting to discuss aftercare and discharge planning 06/19 -Schedule family meeting with parents. -Encourage patient to attend to participate in unit programming and work on coping skills. 1 -Patient's lithium level today was 0.3 (non-trough). -[place] dose increased to lithium carbonate slow release 450 mg twice a day, beginning this evening. - -The patient will be given a lab slip for lithium level and will be told to have a trough level done on 06/24/2019 in anticipation of his follow-up outpatient appointment currently scheduled for 06/25/2019. Mental Health & Subst Abuse Tx Psychiatrist Name of Psychiatrist: [facility] Joselin Joshua Psychiatrist's Date of Appointment with Psychiatrist: 07/09/19 Time of Appointment with Psychiatrist: 9am Psychiatric Appointment Comment: [address] [facility] Psychiatrist Release of Information: Obtained, Reviewed and Signed Therapist Name of Therapist: [facility] Bo Therapist's Date of Therapist Appointment: 06/25/19 Time of Therapist Appointment: 3pm Therapy Appointment Comment: [address] [facility] Therapist Release of Information: Obtained, Reviewed and Signed Post Discharge Appointments Primary Care Physician Name Of Family Doctor: Dr. Peck/Dr. Saldaña Primary Care Date of Appointment with PCP: 06/25/19 Time of Appointment with PCP: 2:00PM Provider Appointment Comment: [address] [place] [id number] Primary Care Release of Information: Obtained, Reviewed and Signed Smoking Cessation Counseling Tobacco Cessation Medication Prescribed at Discharge: Not Applicable/Non-Smoker Contact Information Discharge Discharge Address: [address] [place] [id number] Discharge Plan Discharge Items Patient Disposition: Home - Self-Care Reason For Visit: BIPOLAR DISORDER Discharge Diagnosis: Bipolar disorder Activity: Resume your previous activity Non-emergency contact: Primary Care Provider and Psychiatrist Call non-emergency contact if: you have any medication questions and your symptoms worsen Follow-up/Referrals: Bruno Peck MD [Primary Care Provider] - Diet: Regular Addtl Attending Provider Instructions: Do not forget your lithium level to be drawn on 06/24/2019 in the morning (do not take your morning lithium dose until after you have had your blood drawn that morning). Pending Studies at Discharge: No Stand-Alone Forms: My [facility] Medications and DC Order Prescriptions: New lithium carbonate 450 mg tablet extended release 450 mg PO BID Qty: 30 RF: 1 Continued bupropion HCl [Wellbutrin XL] 300 mg Tablet Extended Release 24 Hr 300 mg PO QAM RF: 0 hydroxyzine HCl 50 mg Tablet 40 mg PO HS RF: 0 Abilify Maintena 400 mg Suspension,Extended Rel Syring 400 mg IM MONTHLY RF: 0 Discharge Orders: Discharge Order (Routine); Ordered 06/20/19 Ordered By: Otf Cary Admission Data Admit Date/Time: 06/18/19 15:35 Attending Provider: Rosalind Crum Admit Provider: Rosalind Crum Primary Care Provider: Bruno Peck Other Interventions: Discharge Summary Assessment (RN) Last Done: 06/20/19 13:38 PSY Interdisciplinary Discharge Planning Last Done: 06/20/19 13:37
[2019-06-20] MEDS ORDERED: LITHIUM CARBONATE 450 MG TABCR PO SCH (21:00)
[2019-06-25] MEDS ORDERED: ARIPIPRAZOLE 400 MG PRE-FILLED SYRINGE IM SCH (09:00)
== END 2019-06-20 16:00 | disposition home or self-care (01) | DRG 885 ==
LOC: ED 11:16 → 3S 15:30